=== PATIENT | female | born 1940 | race Caucasian/White ===

== ENCOUNTER 2017-08-02 03:20 | Observation (INO) ==
--- NOTE | 2017-08-02 03:37 | Emergency Department Note ---
Disposition Clinical Impression: Abdominal pain Qualifiers: Abdominal location: right lower quadrant Qualified Code(s): R10.31 - Right lower quadrant pain Disposition: Home, Self-Care Condition: Good Instructions: Abdominal Pain (ED) Reasons to Return/Additional Instructions: Blood pressure screening: When you had your blood pressure taken, if the top number was greater than 120 or the bottom number was greater than 80, I recommend that you call your primary care provider or a physician of your choice this week to arrange follow-up for further evaluation of your blood pressure. Elevated blood pressures which goes untreated can lead to stroke, heart attack, kidney failure and other life-threatening diseases. If you have an EKG and/or x-ray reading made in the emergency department, it will be reviewed by a data capture clerk and/or radiologist. If this review changes your diagnosis or treatment, you will be contacted at the phone number you provided. If you were prescribed for outpatient testing: Please call to schedule an appointment for your test. If you have been prescribed an antibiotic: Take it as instructed until it is all finished. If you cannot tolerate that medication for some reason, call your doctor for a replacement. If you had a specimen collected for culture, a culture report takes 48-72 hours to generate. You will be contacted if a change in treatment is needed. Return if your condition worsens or if you have severe pain, fever, vomiting or difficulty breathing. If you have received or been prescribed a medication that may cause drowsiness ( tramadol, Phenergan, trazodone, diazepam, lorazepam, hydroxyzine, Xanax, hydrocodone, oxycodone, codeine, or any others) do not drive, drink alcohol, or operate machinery that requires you to be alert for at least 8 hours after taking that medication. Smoking is associated with many medical risks and, if you smoke, we recommend that you contact your primary care provider to discuss smoking cessation options. If you need to find a physician: Go to [email or web address] Or call: [facility], [facility], [facility], Referrals: Melissa Christianson CNP [Primary Care Provider] - Forms: ED Satisfaction Letter Abdominal Pain HPI - General Chief Complaint: ED Nausea/Vomiting/Diarrhea Stated Complaint: vomiting Time Seen by Provider: 08/02/17 03:32 Source: patient, family Mode of arrival: private vehicle Limitations: no limitations Nursing Notes Reviewed: Yes Vital Signs Reviewed: Yes - History of Present Illness HPI Narrative: Patient reports that she woke at 11 PM with acute onset of sharp pain in the region of her right lower quadrant to right groin/hip region. She has not found anything like this better or worse and it is not particularly tender. She has not seen a type of rash she denies any change in activity or straining. She has had persistent nausea and vomiting because of the pain. She relates she also has had one episode of diarrhea without blood or mucus. She denies any pain or trouble like this before. She denies history of kidney stones. She has not had urinary frequency, dysuria or blood. She denies fevers, chills , rashes, weakness, diaphoresis or dizziness. Her family was concerned for possible appendicitis. Pt Subjective Complaint: abdominal pain Onset (ago): hour(s) (4) Consistency: Worsening Location: RLQ Pain Severity: severe Pain Scale: 10 Quality: sharp Radiation: none Migration to: no migration Improves with: nothing Worsens with: nothing Associated symptoms: Reports: nausea, vomiting, diarrhea. Denies: fever, chills , constipation, dysuria, hematemesis, hematochezia, melena, hematuria, anorexia , syncope Treatments prior to arrival: none - Related Data Home Medications Medication Instructions Recorded Confirmed Lisinopril 40 mg PO DAILY 02/08/15 08/02/17 amLODIPine [Norvasc] 5 mg PO DAILY 08/02/17 08/02/17 Allergies Allergy/AdvReac Type Severity Reaction Status Date / Time No Known Allergies Allergy Verified 08/02/17 03:29 All systems ED: reviewed and negative except as stated. Abdominal Pain PMH - Past Medical History Medical history: Reports: hypertension Female Surgical History: Reports: no surgical history - Social History Smoking status: Never smoker Alcohol use: Reports: none Drug use: Reports: none Physical Exam - General Limitations: no limitations General appearance: alert, anxious, in distress - Head Head exam: atraumatic, normocephalic, normal inspection - Eye Eye exam: Present: normal appearance, PERRL, EOMI. Absent: scleral icterus, conjunctival injection - ENT ENT exam: normal exam, normal oropharynx, mucous membranes moist - Neck Neck exam: Present: normal inspection, full ROM, trachea midline - Chest Chest inspection: Present: normal inspection, symmetric chest wall rise - Respiratory Respiratory exam: Present: normal lung sounds bilaterally. Absent: respiratory distress, wheezes, prolonged expiratory phase - Cardiovascular Cardiovascular exam: Present: regular rate, normal rhythm, normal heart sounds. Absent: tachycardia - Abdominal Exam Abdominal exam: Present: soft, Non-Tender, normal bowel sounds. Absent: tenderness, distention, guarding, rebound, rigidity, psoas sign, obturator sign , heel tap sign, Machuca's sign, tenderness at McBurney's Point - Extremities Exam Extremities exam: Present: normal inspection, full ROM, normal capillary refill. Absent: tenderness, pedal edema - Expanded Lower Extremity Exam Neurovascular/Tendon exam: Present: normal capillary refill. Absent: motor deficit, sensory deficit, tendon deficit Gait: observed and normal - Back Exam Back exam: Present: normal inspection, full ROM. Absent: tenderness, CVA tenderness (R), CVA tenderness (L) - Neurological Exam Neurological exam: Present: alert, oriented X3, normal gait - Psychiatric Psychiatric exam: Present: agitated, anxious - Skin Skin exam: Present: warm, dry, intact, normal color. Absent: diaphoresis, pallor Course Course Narrative: 0415: Patient's CBC is normal but her urine does demonstrate evidence for infection. My preliminary review of her CT does not demonstrate a cause for her pain. I have added a basic metabolic panel to her labs and written for an IV fluid bolus as well as Rocephin IV. We are awaiting the radiology CT reports. Depending on her response to treatment she may need further IV fluids and intravenous antibiotics inpatient. 0455: Care is discussed with Dr. Guzmán. The patient continues with 5/10 right- sided abdominal pain and nausea. An additional dose of Zofran has been administered. He is agreeable with continued IV fluids, antibiotics, antiemetics and pain control. Verbal orders have been obtained for her observation. Vital Signs Temperature 97.1 F L 08/02/17 03:21 Pulse Rate 77 08/02/17 03:21 Respiratory Rate 16 08/02/17 03:21 Blood Pressure 166/88 08/02/17 03:21 O2 Sat by Pulse Oximetry 98 08/02/17 03:21 Temperature 97.1 F L 08/02/17 03:21 Pulse Rate 77 08/02/17 03:21 Respiratory Rate 16 08/02/17 03:21 Blood Pressure 166/88 08/02/17 03:21 O2 Sat by Pulse Oximetry 98 08/02/17 03:21 Oxygen Delivery Oxygen Delivery Room Air Abdominal Pain - Differential Diagnosis Differential Diagnosis: Likely: abdominal pain non-specific, AAA, acute appendicitis, calculus of kidney, diverticulitis - Medical Records Medical records reviewed: Yes I reviewed the patient's medical records. - Lab Data Lab results reviewed: Yes I reviewed the patient's lab results. Result diagrams: 08/02/17 03:50 08/02/17 03:10 Lab Results 08/02/17 08/02/17 08/02/17 Range/Units 03:10 03:38 03:50 WBC 5.9 (4.3-11.1) K/mcL RBC 3.94 (3.82-4.97) M/mcL Hgb 13.0 (11.5-15.4) g/dL Hct 36.9 (35.3-44.9) % MCV 93.7 (83.0-100.0) fL MCH 33.0 (28.0-33.3) pg MCHC 35.2 (31.6-35.5) g/dL RDW 12.2 (11.5-14.5) % Plt Count 222 (140-400) K/mcL MPV 9.5 (9.4-12.4) fL Immature Gran % 0.2 (0-4) % Seg Neutrophils % 77.0 % Lymphocytes % 14.6 % Monocytes % 7.4 % Eosinophils % 0.5 % Basophils % 0.3 % Neutrophils # 4.6 (1.6-8.9) K/mcL Lymphocytes # 0.9 (0.6-4.6) K/mcL Monocytes # 0.4 (0.0-1.3) K/mcL Eosinophils # 0.0 (0.0-0.6) K/mcL Basophils # 0.0 (0.0-0.2) K/mcL Sodium 134 L (136-145) mEq/L Potassium 3.6 (3.5-5.1) mEq/L Chloride 103 (98-107) mEq/L Carbon Dioxide 24 (23-29) mEq/L BUN 17 (8-23) mg/dL Creatinine 0.56 L (0.60-1.20) mg/dL Est GFR ( Amer) > 60 (> 60) Est GFR (Non-Af Amer) > 60 (> 60) BUN/Creatinine Ratio 30 H (6-26) Glucose 139 H (70-105) mg/dL Calculated Osmolality 282 (280-300) Calcium 9.4 (8.6-10.3) mg/dL Urine Color Yellow (Yellow) Urine Clarity Slightly Cloudy A (Clear) Urine pH 7.0 (5.0-8.0) pH Units Ur Specific [place] 1.020 (1.010-1.025) Urine Protein Trace (Neg-Trace) mg/dL Urine Glucose (UA) Normal (Normal) mg/dL Urine Ketones Trace H (Negative) mg/dL Urine Blood Negative (Negative) Urine Nitrite Positive A (Negative) Urine Bilirubin Negative (Negative) Urine Urobilinogen Normal (Normal) mg/dL Ur Leukocyte Esterase Moderate H (Negative) Urine Microscopic WBC 30-50 H (0-3) per hpf Ur Squamous Epith Cells Few (None-Few) per lpf Urine Bacteria Many H (None-Few) per hpf Ur Culture Indicated? YES A (NO) - Radiology Data Radiology results reviewed: Yes I reviewed the patient's radiology results. CT is performed of the abdomen and pelvis without IV or oral contrast. Basal lungs are free of infiltrate, effusion or mass. The liver, spleen and pancreas appear normal. Gallbladder is without stone or wall thickening. Aorta is normal in caliber. Kidneys are without stone or obstruction. Bowels without obstruction, perforation or significant inflammatory change. There is an area of mild inflammation in the mesentery in the left lower abdomen that has nonspecific. The appendix is not well visualized but there is no secondary inflammatory signs to suggest appendicitis. The pelvic structures appear normal. No acute structural abnormalities seen to account for this patient's pain. This is on my interpretation. Impressions Abdomen/Pelvis CT 08/02/17 03:38 IMPRESSION: 1. Diverticulosis without scan evidence for diverticulitis. 2. The appendix is not identified though there are no inflammatory changes at the cecal base to suggest appendicitis. 3. Suspected uterine prolapse. D/ / Migue Anderson MD / Migue Anderson MD Interpreting Provider: Migue Anderson MD
[2017-08-02] MEDS ORDERED: Ondansetron 4 MG/2 ML VIAL IM ONE (03:38)
[2017-08-02] MEDS ORDERED: *HR* HYDROmorphone (PF) 1 MG/ML SYRINGE IM ONE (03:38)
[2017-08-02] MEDS ORDERED: Ketorolac 30 MG/ML VIAL IM ONE (03:38)
[2017-08-02 03:57] LABS: Basophils % 0.3 %; Eosinophils % 0.5 %; Hematocrit 36.9 % (35.3-44.9); Immature Granulocytes % 0.2 % (0-4); Lymphocytes # 0.9 K/mcL (0.6-4.6); Lymphocytes % 14.6 %; Mean Corpuscular HGB Conc 35.2 g/dL (31.6-35.5); Mean Corpuscular Volume 93.7 fL (83.0-100.0); Mean Platelet Volume 9.5 fL (9.4-12.4); Monocytes # 0.4 K/mcL (0.0-1.3); Monocytes % 7.4 %; Neutrophils # 4.6 K/mcL (1.6-8.9); Platelet Count 222 K/mcL (140-400); Red Blood Count 3.94 M/mcL (3.82-4.97); Red Cell Distribution Width 12.2 % (11.5-14.5)
[2017-08-02 04:03] LABS: Bilirubin,Urine Negative (Negative); Blood,Urine Negative (Negative); Clarity,Urine Slightly Cloudy (Clear); Color,Urine Yellow (Yellow); Glucose,Urine (UA) Normal (Normal); Ketones,Urine Trace mg/dL (Negative); Leukocyte Esterase,Urine Moderate (Negative); Nitrite,Urine Positive (Negative); Protein,Urine Trace mg/dL (Neg-Trace); Urobilinogen,Urine Normal (Normal)
[2017-08-02 04:08] LABS: Bacteria,Urine Many per hpf (None-Few); Squamous Epithelial Cell,Urine Few per lpf (None-Few); WBC,Urine 30-50 per hpf (0-3)
[2017-08-02] MEDS ORDERED: 0.9 % Sodium Chloride 1,000 ML IVC ONE (04:18)
[2017-08-02] MEDS ORDERED: Ondansetron 4 MG/2 ML VIAL IVP ONE (04:30)
[2017-08-02 04:48] LABS: BUN/Creatinine Ratio 30 (6-26); Blood Urea Nitrogen 17 mg/dL (8-23); Calcium 9.4 mg/dL (8.6-10.3); Carbon Dioxide 24 mEq/L (23-29); Chloride 103 mEq/L (98-107); Glucose 139 mg/dL (70-105); Osmolality,Calculated 282 (280-300); Potassium 3.6 mEq/L (3.5-5.1); Sodium 134 mEq/L (136-145); eGFR For African Americans > 60 (> 60); eGFR For Non-African Americans > 60 (> 60)
[2017-08-02] MEDS ORDERED: Naloxone 0.4 MG/ML INJ IVP PRN (05:52)
[2017-08-02] MEDS ORDERED: *HR* HYDROcodone/Acet 5/325 mg TABLET PO PRN (05:52)
[2017-08-02] MEDS ORDERED: Ondansetron 4 MG/2 ML VIAL IVP PRN ×2 (05:52→15:58)
[2017-08-02] MEDS ORDERED: *HR* Promethazine 25 MG/ML VIAL IVP PRN ×2 (06:08→15:58)
[2017-08-02] MEDS: 0.9 % Sodium Chloride 1,000 ML IVC SCH ×3 (06:33→17:16)
[2017-08-02] MEDS: amLODIPine 5 MG TABLET PO SCH (11:16)
[2017-08-02] MEDS: Lisinopril 20 MG TABLET PO SCH (11:16)
[2017-08-02] MEDS ORDERED: Acetaminophen 325 MG TABLET PO PRN (15:56)
--- NOTE | 2017-08-02 16:30 | Internal Med History&Physical ---
Date of Encounter: 08/02/17 Time of Encounter: 15:35 Assessment and Plan (1) Abdominal pain Current visit: Yes Status: Acute Etiology is not obvious. It has improved significantly since admission. Will continue present management and add scheduled ibuprofen. Qualifiers: Abdominal location: right lower quadrant Qualified Code(s): R10.31 - Right lower quadrant pain (2) UTI (urinary tract infection) Current visit: Yes Status: Acute Continue Rocephin and await urine culture report Qualifiers: Urinary tract infection type: site unspecified Hematuria presence: without hematuria Qualified Code(s): N39.0 - Urinary tract infection, site not specified (3) Hypertension Current visit: Yes Status: Chronic Continue lisinopril and amlodipine. Qualifiers: Hypertension type: essential hypertension Qualified Code(s): I10 - Essential (primary) hypertension Internal Medicine - H&P: HPI Chief complaint: Low back and right lower quadrant pain Admitted From: Emergency Dept Plans for Post Hospital Care: Home History of present illness: Ms. Dent is a 77 year old female who came to emergency room stating she awakened approximately 11 PM on August 01 with discomfort in her right lower abdominal area which seemed to radiate around from her low back. She denies nausea vomiting diarrhea dysuria or other significant abnormalities. She had had some transient minimal discomfort in her low back the previous day. There was no injury associated. She was evaluated emergency room and found to have evidence of UTI. She was admitted to [facility] floor for ongoing care needs. She states the pain has decreased in intensity from a 10/10 level to a 5/10 level at present. She denies previous similar episodes of pain. Past Med Surg Social Fam HX - Past Medical History Medical history: hypertension - Past Surgical History Surgical History: no surgical history - Social History Smoking Status: Never smoker Smokeless Tobacco Status: No Alcohol use: none Drug use: none Internal Medicine - H&P: Meds Lisinopril 40 mg PO DAILY 02/08/15 [History] amLODIPine [Norvasc] 5 mg PO DAILY 08/02/17 [History] 3 Allergy/AdvReac Type Severity Reaction Status Date / Time No Known Allergies Allergy Verified 08/02/17 03:29 All Systems PM: A 10-system review of systems was performed and is negative for pertinent findings except as documented above in the HPI. Review of systems: Gen.: She states her weight has been stable the past few months Cardiovascular: She has history of hypertension but denies AL heart failure angina DVT or pulmonary embolus Respiratory: She is a lifelong nonsmoker and has no known chronic lung disease GI: She denies disorders of her liver gallbladder or exocrine pancreas. : She denies hematuria dysuria or kidney stones. Neurologic: She denies large distribution strokes or seizures. Endocrine: She denies diabetes or thyroid disease or hyperlipidemia Hematology/oncology: She denies blood disorders cancers or anemia Psychiatric: She denies anxiety depression or other mental health issues [place] skeletal: She denies arthritis gout other bone joint or muscle disorders. - Constitutional Vitals: Temp Pulse Resp BP Pulse Ox 98.9 F 73 16 188/97 96 08/02/17 16:01 08/02/17 16:01 08/02/17 16:01 08/02/17 16:01 08/02/17 16:01 Exam: Gen.: She is a well-developed well-nourished female lying in bed who appears in minimal discomfort while at rest HEENT: Head is atraumatic and normocephalic. Eyes: EOMI. There is no scleral icterus. Mouth: Mucosa is moist. Neck: Supple and nontender. There is no thyromegaly or adenopathy noted. Heart: Regular without murmurs gallops or ectopics Lungs: No wheezes or crackles are heard. Abdomen: She has mild discomfort to deep palpation in the right lower abdominal and right inguinal area. No masses or guarding are noted. Extremities: There is no cyanosis edema or clubbing noted. Dorsalis pedis and posttibial pulses are 1-2 over 2 bilaterally. She has no pain on internal and external rotation of her hip or flexion of the knee or hip. She has no pain over the trochanteric bursa. Neurologic: Mental status: She is talkative and a good historian. Cranial nerves: Smile is symmetric. Forehead wrinkles bilaterally. Tongue protrudes midline. EOMI. Motor: There is no pronator drift. Cerebellar: Finger to nose is intact bilaterally. Skin: Warm and dry Internal Med - H&P Results - Labs CBC & Chem 7: 08/02/17 03:50 08/02/17 03:10
[2017-08-02] MEDS: Ibuprofen 400 MG TABLET PO PRN (17:21)
[2017-08-02] MEDS: Lactobacillus 1 EACH CAP.SPRINK PO SCH (20:51)
[2017-08-03] MEDS: 0.9 % Sodium Chloride 1,000 ML IVC SCH (04:57)
[2017-08-03] MEDS ORDERED: cefTRIAXone 2,000 MG in Water for inj. (sterile) 20 ML 20 ML IVPB SCH (05:00)
[2017-08-03] MEDS: Ibuprofen 400 MG TABLET PO PRN (05:13)
[2017-08-03 06:33] LABS: Basophils % 0.3 %; Eosinophils % 0.6 %; Hematocrit 37.7 % (35.3-44.9); Hemoglobin 12.7 g/dL (11.5-15.4); Immature Granulocytes % 0.3 % (0-4); Lymphocytes % 27.7 %; Mean Corpuscular HGB Conc 33.7 g/dL (31.6-35.5); Mean Corpuscular Hemoglobin 32.4 pg (28.0-33.3); Mean Corpuscular Volume 96.2 fL (83.0-100.0); Mean Platelet Volume 10.1 fL (9.4-12.4); Monocytes # 0.5 K/mcL (0.0-1.3); Monocytes % 13.3 %; Neutrophils # 2.1 K/mcL (1.6-8.9); Platelet Count 219 K/mcL (140-400); Red Blood Count 3.92 M/mcL (3.82-4.97); Red Cell Distribution Width 12.4 % (11.5-14.5); Segmented Neutrophils % 57.8 %
[2017-08-03 06:51] LABS: Alanine Aminotransferase 13 Units/L (7-52); Albumin 3.8 g/dL (3.5-5.7); Albumin/Globulin Ratio 1.4 (1.1-2.2); Alkaline Phosphatase 68 Units/L (34-104); Aspartate Amino Transferase 15 Units/L (13-39); BUN/Creatinine Ratio 17 (6-26); Bilirubin,Total 0.5 mg/dL (0.3-1.0); Blood Urea Nitrogen 11 mg/dL (8-23); Calcium 8.8 mg/dL (8.6-10.3); Carbon Dioxide 26 mEq/L (23-29); Chloride 105 mEq/L (98-107); Globulin 2.8 g/dL (2.4-3.5); Glucose 93 mg/dL (70-105); Lipase 12 Units/L (11-82); Osmolality,Calculated 289 (280-300); Potassium 3.7 mEq/L (3.5-5.1); Sodium 140 mEq/L (136-145); Total Protein 6.6 g/dL (6.4-8.9); eGFR For African Americans > 60 (> 60); eGFR For Non-African Americans > 60 (> 60)
[2017-08-03 07:11] VITALS: BP 165/81
--- NOTE | 2017-08-03 09:30 | Discharge Summary ---
Date of Encounter: 08/03/17 Time of Encounter: 09:20 - Discharge Diagnosis (1) Abdominal pain Priority: Primary Status: Acute Qualifiers: Abdominal location: right lower quadrant Qualified Code(s): R10.31 - Right lower quadrant pain (2) UTI (urinary tract infection) Priority: Secondary Status: Acute Qualifiers: Urinary tract infection type: site unspecified Hematuria presence: without hematuria Qualified Code(s): N39.0 - Urinary tract infection, site not specified (3) Hypertension Priority: Secondary Status: Chronic Qualifiers: Hypertension type: essential hypertension Qualified Code(s): I10 - Essential (primary) hypertension Hospital course: Ms. Dent is a 77 year old female who came to emergency room stating she awakened approximately 11 PM on August 01 with discomfort in her right lower abdominal area which seemed to radiate around from her low back. She denies nausea vomiting diarrhea dysuria or other significant abnormalities. She had had some transient minimal discomfort in her low back the previous day. There was no injury associated. She was evaluated emergency room and found to have evidence of UTI. She was admitted to [facility] for ongoing care needs. Initial orders were written by the emergency room physician. I saw her on the afternoon of August 02 and performed a history and physical. By the time I saw her the abdominal pain had significantly lessened. It lessened further over the ensuing hours and was almost completely gone by the morning of August 03. The etiology of the pain was not determined with certainty. Urine culture showed greater than 100,000 gram-negative rods on preliminary report available at time of discharge. She will continue with Ceftin and lactobacillus empirically for 3 days at discharge. Her PCP Melissa Christianson CNP can follow-up on this. On August 03 she felt stable for discharge home. She will follow with her PCP within 1 week. - Time Spent with Patient Total time spent providing and/or coordinating discharge services: - Discharge Medications Prescriptions: Cefuroxime PO [Ceftin] 500 mg PO Q12HR #6 tablet Lactobacillus [Culturelle] 1 each PO BID #6 [email or web address] Home Medications: Lisinopril 40 mg PO DAILY 02/08/15 [History] amLODIPine [Norvasc] 5 mg PO DAILY 08/02/17 [History] Cefuroxime PO [Ceftin] 500 mg PO Q12HR #6 tablet 08/03/17 [Rx] Lactobacillus [Culturelle] 1 each PO BID #6 [email or web address] 08/03/17 [Rx] Allergies/Adverse Reactions: 3 Allergy/AdvReac Type Severity Reaction Status Date / Time No Known Allergies Allergy Verified 08/02/17 03:29 Date of admission: 08/02/17 05:20 Primary care physician: Melissa Christianson Consults: 08/02/17 06:39 Consult to Pastoral Services [CONS] Routine Comment: - Constitutional Vitals: Temp Pulse Resp BP Pulse Ox 98.1 F 63 18 165/81 95 08/03/17 06:33 08/03/17 06:33 08/03/17 06:33 08/03/17 06:33 08/03/17 06:33 - Patient Status Disposition: Home, Self-Care Condition: Good Functional capacity at discharge: independent ambulation Overall status at discharge: patient is progressing back to baseline - Discharge Instructions Follow Up With: Melissa Christianson, [employer] [Primary Care Provider] - 1 week - Diet and Activity Activity: resume usual activities as tolerated Diet: advance to your usual diet
[2017-08-03] MEDS: Lisinopril 20 MG TABLET PO SCH (09:56)
[2017-08-03] MEDS: amLODIPine 5 MG TABLET PO SCH (09:56)
[2017-08-03] MEDS: Lactobacillus 1 EACH CAP.SPRINK PO SCH (09:56)
== END 2017-08-03 11:05 | disposition home or self-care (01) ==
LOC: INPPIK 03:20 → EMEROOPIK 03:20 → INPPIK 05:55
PROVIDERS: ADMIT Internal Medicine; ATTEND Internal Medicine